=== PATIENT | male | born 1975 | race Caucasian/White ===

== ENCOUNTER 2017-08-15 13:43 | Outpatient (CLI) | payer BC ==
--- NOTE | 2017-08-15 15:35 | MRI ---
CERVICAL SPINE MRI WITHOUT IV CONTRAST: History: 42-year-old male with bilateral shoulder and arm pain for several weeks, cervical radiculopathy. Technique: Multiplanar, multisequence MR examination of the cervical spine is performed. There is fairly extensi ve motion artifact which considerably lowers the sensitivity of this study. FINDINGS: C2-3: Unremarkable. C3-4: Unremarkable. C4-5: There is mild left foraminal narrowing without canal stenosis. C5-6: There is mild left foraminal narrowing without significant central canal or foraminal stenosis. C6-7: Bilateral foraminal stenosis with significant central canal stenosis. C7-T1: Unremarkable. No evidence for spinal cord mass or overt spinal cord impingement. IMPRESSION: Limited exam because of significant motion artifact. Multilevel variable severity foraminal stenosis, most marked at C6-7 bilaterally. POS: [facility]
== END 2017-08-15 13:44 | disposition home or self-care (01) ==
LOC: TBSIIMAG 13:43
PROVIDERS: ATTEND Family Medicine
DX: M54.12 Radiculopathy, cervical region (principal); M99.51 Intervertebral disc stenosis of neural canal of cervical region
CPT/HCPCS: 72141